=== PATIENT | male | born 1995 | race Caucasian/White ===

== ENCOUNTER 2025-10-24 21:26 | Emergency (ER) | payer OTHER ==
[~2025-10-24] VITALS: Ht 172.7 cm; Wt 88.0 kg
[2025-10-24 21:35] VITALS: O2SAT 97
[2025-10-24 23:06] LABS: BASOPHILS % 0.5 % (0.0-2.0); EOSINOPHILS % 1.5 % (0.0-5.0); HEMATOCRIT. 44.6 % (42.0-52.0); HEMOGLOBIN. 15.1 g/dL (14.0-18.0); LYMPHOCYTES % 9.6 % (20.0-50.0); MEAN PLATELET VOLUME 9.5 fl (7.4-10.4); MONOCYTES % 4.7 % (2.0-8.0); NEUTROPHILS % 83.7 % (40.0-76.0); PLATELET 319 x1000/uL (130-400); RED BLOOD CELL COUNT 4.90 mill/uL (4.7-6.1); RED CELL DISTRIBUTION WIDTH 13.7 % (11.6-14.6)
[2025-10-24 23:21] LABS: CREATININE 0.8 mg/dL (0.6-1.3); ETHANOL BLOOD 191 mg/dL (<10); UREA NITROGEN BLOOD 9 mg/dL (9-23)
[2025-10-24 23:22] LABS: PROTEIN TOTAL 7.3 g/dL (6.0-8.3)
[2025-10-24 23:23] LABS: ASPARTATE AMINOTRANSFERASE 93 IU/L (<34); BILIRUBIN TOTAL 0.4 mg/dL (0.1-1.0)
[2025-10-25 03:21] VITALS: TEMP 36.8
[2025-10-25 03:24] VITALS: BP 96/49; PULSE 76; RESP 18; O2SAT 96
== END 2025-10-25 03:27 | disposition home or self-care (01) ==
LOC: ER 21:26 → CMPBEDREQ 10-25 07:41
DX: S02.2XXA Fracture of nasal bones, initial encounter for closed fracture (principal); F10.129 Alcohol abuse with intoxication, unspecified; I10 Essential (primary) hypertension; V43.52XA Car driver injured in collision with other type car in traffic accident, initial encounter; Y93.89 Activity, other specified; Y92.410 Unspecified street and highway as the place of occurrence of the external cause; Y99.8 Other external cause status; Y90.9 Presence of alcohol in blood, level not specified
CPT/HCPCS: 36415; 70486; 71250; 74176; 80053; 80320; 85025; 86850; 86900; 99284; G0480